=== PATIENT | male | born 1980 | race Caucasian/White ===

== ENCOUNTER 2017-01-21 09:32 | Emergency (ER) | payer OTHER ==
[~2017-01-21] VITALS: Wt 63.0 kg
[2017-01-21] MEDS ORDERED: HYDROCODONE/APAP (5/325) TAB PO ONE (10:00)
[2017-01-21 10:05] LABS: URINE BLOOD (Dip) POC Negative (NEGATIVE)
--- NOTE | 2017-01-21 10:23 | RADRPT ---
PROCEDURE: XR Abdomen CLINICAL INDICATION: Lower abdominal pain TECHNIQUE: An AP supine radiograph of the abdomen was submitted. COMPARISON: None FINDINGS: Substantial stool seen to the colon without evidence of bowel obstruction. No organomegaly or discrete mass is identified. No pathological calcification is identified. The osseous elements appear unremarkable. IMPRESSION: 1. Substantial stool seen to the colon without evidence of bowel obstruction. 2. Otherwise, nonspecific abdomen. Physician Lynne Date Time Electronically viewed and signed by Demetra Thomas Physician on 01/21/2017 10:23 /
[2017-01-21] MEDS ORDERED: DOCU-144 PO (11:15)
[2017-01-21] MEDS ORDERED: IBUP-1542 PO (11:15)
--- NOTE | 2017-01-21 12:08 | ERD ---
ER Documentation Chief Complaint Date/Time DATE: 01/21/17 TIME: 12:04 Chief Complaint LOWER ABD PAIN, ONSET TODAY, NO N/V/D HPI This is a 36-year-old male that presents to the ER with lower mid abdominal pain that started 2 hours ago. Patient states that pain is sharp and constant. He denies any nausea vomiting or diarrhea. He denies any urinary frequency or dysuria. He denies any hematuria. He denies any fevers or chills. He denies any flank pain. He has not tried anything for the pain. Patient denies any constipation. Patient currently uses crystal meth and marijuana. ROS 12 point review of systems was done, all negative except per HPI. Medications Home Meds Active Scripts Ibuprofen* (Motrin*) 600 Mg Tab, 600 MG PO Q6, #30 TAB Prov:CHAUNCEY DUMONT 01/21/17 Docusate Sodium* (Colace*) 100 Mg Capsule, 100 MG PO TID, #30 CAP Prov:CHAUNCEY DUMONT 01/21/17 Allergies Allergies: Coded Allergies: No Known Allergy (Unverified , 01/21/17) PMhx/Soc History of Surgery: Yes (appendectomy, cyst removal @ shoulder) Anesthesia Reaction: No Hx Neurological Disorder: No Hx Respiratory Disorders: No Hx Cardiac Disorders: No Hx Psychiatric Problems: No Hx Miscellaneous Medical Probl: No Hx Alcohol Use: No Hx Substance Use: Yes (mets and marijuana) Hx Tobacco Use: Yes Smoking Status: Current every day smoker Physical Exam Vitals Vital Signs Date Time Temp Pulse Resp B/P Pulse Ox O2 Delivery O2 Flow Rate FiO2 01/21/17 09:35 98.5 61 17 132/88 100 Physical Exam GENERAL: The patient is well developed and appropriate for usual state of health , in no apparent distress. HEENT: Atraumatic. CHEST: Clear to auscultation bilaterally. There are no rales, wheezes or rhonchi. HEART: Regular rate and rhythm. No murmurs, clicks, rubs or gallops. ABDOMEN: Soft, nontender and nondistended. Good bowel sounds. No rebound or guarding. No gross peritonitis. No gross organomegaly or masses. No Abdi sign or McBurney point tenderness. BACK: No midline or flank tenderness. NEURO: Alert and oriented. Results 24 hrs Laboratory Tests Test 01/21/17 10:08 Bedside Urine pH (LAB) 5.5 Bedside Urine Protein (LAB) Negative Bedside Urine Glucose (UA) Negative Bedside Urine Ketones (LAB) Negative Bedside Urine Blood Negative Bedside Urine Nitrite (LAB) Negative Bedside Urine Leukocyte Esterase (L Negative Current Medications Medications (Trade) Dose Ordered Sig/Omar Route PRN Reason Start Time Stop Time Status Last Admin Dose Admin Acetaminophen/ Hydrocodone Bitart (Flushing (5/325)) 1 tab ONCE ONCE PO 01/21/17 10:00 01/21/17 10:01 DC 01/21/17 10:03 Procedures/MDM Differential diagnosis includes but is not limited to appendicitis, hernia, testicular torsion, UTI, constipation, diverticulitis, epididymitis. This is a 36-year-old male presents to the ER with lower midabdominal pain. Pain has been going on for a couple hours is minimal and his physical examination is benign. Patient is afebrile and well-appearing with no history of fevers or chills. Through shared medical decision-making patient would like to get urine and abdominal x-ray. He would like to avoid CT imaging as pain is just started and it is not very painful. Patient did have a moderate amount of stool in the colon. There was no evidence of urinary tract infection. Patient will be sent home with ibuprofen. He will also be given stool softeners. Suspicion for acute abdomen is low, patient's physical exam is benign and he is extremely well -appearing. I doubt testicular torsion or epididymitis as he does not complain of testicular pain. I doubt nephrolithiasis, obstructive stone, septic stone as patient is not complaining of severe pain and does not have any hematuria or urinary symptoms patient is to follow-up with his primary care doctor within 1- 2 days return to ER sooner if symptoms worsen. My medical decision making was shared with the patient understands and agrees with plan. Departure Diagnosis: Primary Impression: Abdominal pain Condition: Stable Patient Instructions: Abdominal Pain Additional Instructions: Call your primary care doctor TOMORROW for an appointment during the next 1-2 days.See the doctor sooner or return here if your condition worsens before your appointment time. CHAUNCEY DUMONT Jan 21, 2017 12:08
== END 2017-01-21 11:19 | disposition home or self-care (01) ==
LOC: FTE 09:32
DX: R10.30 Lower abdominal pain, unspecified (principal); F17.210 Nicotine dependence, cigarettes, uncomplicated
CPT/HCPCS: 74000; 81003; Z7502; Z7610